=== PATIENT | female | born 1995 | race African-American/Black ===

== ENCOUNTER 2017-01-24 16:49 | Emergency (ER) | payer SELFPAY ==
[~2017-01-24] VITALS: Ht 165.1 cm; Wt 80.0 kg
[2017-01-24 16:51] VITALS: BP 124/74; PULSE 78; RESP 15; TEMP 98; O2SAT 99
--- NOTE | 2017-01-24 17:08 | PD ---
HPI Chief Complaint: GI Complaint Time Seen by Provider: 17:07 Travel History International Travel<30 days: No Contact w/Intl Traveler<30days: No Traveled to known affect area: No History of Present Illness HPI 21-year-old female with no significant medical history presents to the emergency department for evaluation of nausea and vomiting since this morning. Patient states that she "cannot keep anything down." Denies fever or chills. No significant abdominal pain. No urinary symptoms. Patient cannot recall when her last menstrual cycle was, states it "has been a while." Denies any chance of despite being sexually active reporting that she "always uses protection." Patient denies any recent illnesses, fever, or chills. She denies any urinary symptoms. No vaginal discharge or bleeding. No other symptoms to report. PFSH Past Medical History Medical History: Denies Significant Hx ?: Unknown LMP: UNKNOWN : 1 : 1 Social History Alcohol Use: Yes (OCC) Tobacco Use: No Substance Use: No Allergies-Medications (Allergen,Severity, Reaction): Coded Allergies: No Known Allergies (Unverified , 05/04/16) Reported Meds & Prescriptions Reported Meds & Active Scripts Active No Active Prescriptions or Reported Medications Review of Systems Except as stated in HPI: all other systems reviewed are Neg Physical Exam Narrative GENERAL: Well-nourished female patient, in no acute distress SKIN: Warm and dry. HEAD: Atraumatic. Normocephalic. EYES: Pupils equal and round. No scleral icterus. No injection or drainage. ENT: No nasal bleeding or discharge. Mucous membranes pink and moist. NECK: Trachea midline. No JVD. CARDIOVASCULAR: Regular rate and rhythm. No murmur appreciated. RESPIRATORY: No accessory muscle use. Clear to auscultation. Breath sounds equal bilaterally. GASTROINTESTINAL: Abdomen soft, non-tender, nondistended. Hepatic and splenic margins not palpable. MUSCULOSKELETAL: No obvious deformities. No clubbing. No cyanosis. No edema. NEUROLOGICAL: Awake and alert. No obvious cranial nerve deficits. Motor grossly within normal limits. Normal speech. PSYCHIATRIC: Appropriate mood and affect; insight and judgment normal. Data Data Last Documented VS Vital Signs Date Time Temp Pulse Resp B/P Pulse Ox O2 Delivery O2 Flow Rate FiO2 01/24/17 16:51 98.0 78 15 124/74 99 Orders Complete Blood Count With Diff (01/24/17 17:10) Comprehensive Metabolic Panel (01/24/17 17:10) Lipase (01/24/17 17:10) Prothrombin Time / Inr (Pt) (01/24/17 17:10) Act Partial Throm Time (Ptt) (01/24/17 17:10) Urinalysis - C+S If Indicated (01/24/17 17:10) Ed Urine Pregnancytest Poc (01/24/17 17:10) Gc And Chlamydia Pcr (01/24/17 17:12) Influenzae A/B Antigen (01/24/17 17:23) Ondansetron Inj (Zofran Inj) (01/24/17 18:00) Sodium Chlor 0.9% 1000 Ml Inj (Ns 1000 M (01/24/17 17:57) Ct Abd/Pel W Iv Contrast(Rout) (01/24/17 18:07) Dicyclomine Inj (Bentyl Inj) (01/24/17 18:15) Iohexol 350 Inj (Omnipaque 350 Inj) (01/24/17 19:30) Wet Prep Profile (01/24/17 20:12) Labs Laboratory Tests Test 01/24/17 01/24/17 01/24/17 17:12 17:20 17:25 Chlamydia trachomatis DNA NOT DETECTED (PCR) Neisseria gonorrhoeae DNA NOT DETECTED (PCR) White Blood Count 4.2 TH/MM3 Red Blood Count 4.30 MIL/MM3 Hemoglobin 13.2 GM/DL Hematocrit 39.1 % Mean Corpuscular Volume 90.9 FL Mean Corpuscular Hemoglobin 30.8 PG Mean Corpuscular Hemoglobin 33.8 % Concent Red Cell Distribution Width 12.5 % Platelet Count 187 TH/MM3 Mean Platelet Volume 10.1 FL Neutrophils (%) (Auto) 84.9 % Lymphocytes (%) (Auto) 11.5 % Monocytes (%) (Auto) 3.2 % Eosinophils (%) (Auto) 0.1 % Basophils (%) (Auto) 0.3 % Neutrophils # (Auto) 3.6 TH/MM3 Lymphocytes # (Auto) 0.5 TH/MM3 Monocytes # (Auto) 0.1 TH/MM3 Eosinophils # (Auto) 0.0 TH/MM3 Basophils # (Auto) 0.0 TH/MM3 CBC Comment DIFF FINAL Differential Comment Prothrombin Time 10.6 SEC Prothromb Time International 1.0 RATIO Ratio Activated Partial 19.6 SEC Thromboplast Time Sodium Level 139 MEQ/L Potassium Level 3.8 MEQ/L Chloride Level 105 MEQ/L Carbon Dioxide Level 27.2 MEQ/L Anion Gap 7 MEQ/L Blood Urea Nitrogen 8 MG/DL Creatinine 0.75 MG/DL Estimat Glomerular Filtration 116 ML/MIN Rate Random Glucose 94 MG/DL Calcium Level 8.5 MG/DL Total Bilirubin 0.2 MG/DL Aspartate Amino Transf 14 U/L (AST/SGOT) Alanine Aminotransferase 22 U/L (ALT/SGPT) Alkaline Phosphatase 51 U/L Total Protein 7.8 GM/DL Albumin 4.1 GM/DL Lipase 83 U/L Urine Color YELLOW Urine Turbidity HAZY Urine pH 6.5 Urine Specific [place] 1.031 Urine Protein 30 mg/dL Urine Glucose (UA) NEG mg/dL Urine Ketones NEG mg/dL Urine Occult Blood TRACE Urine Nitrite NEG Urine Bilirubin NEG Urine Urobilinogen 2.0 MG/DL Urine Leukocyte Esterase TRACE Urine RBC 25 /hpf Urine WBC 3 /hpf Urine Squamous Epithelial 22 /hpf Cells Urine Bacteria RARE /hpf Urine Hyaline Casts 1 /lpf Urine Mucus FEW /lpf Microscopic Urinalysis Comment CULT NOT INDICATED MDM Medical Decision Making Medical Screen Exam Complete: Yes Emergency Medical Condition: Yes Medical Record Reviewed: Yes Differential Diagnosis versus UTI versus STD versus gastroenteritis versus gastritis Narrative Course 21-year-old female presents to emergency department for evaluation of abdominal pain. Patient appears overall well and without distress. Abdominal exam is benign. Workup was initiated in triage. Once a medical bed becomes available, patient will be transferred and care assumed by the provider. Scripts No Active Prescriptions or Reported Meds Condition: Stable Chely Acevedo Jan 24, 2017 17:07
[2017-01-24] MEDS ORDERED: SODIUM CHLOR 0.9% 1000 ML INJ 1,000 ML IV ONE (17:57)
[2017-01-24 17:59] LABS: AUTOMATED NEUTROPHIL # 3.6 TH/MM3 (1.8-7.7); BASOPHIL % 0.3 % (0.0-2.0); EOSINOPHIL % 0.1 % (0.0-4.0); HEMATOCRIT 39.1 % (35.0-46.0); HEMO FLAGS DIFF FINAL; LYMPH % 11.5 % (9.0-44.0); LYMPHOCYTE # 0.5 TH/MM3 (1.0-4.8); MEAN CELL VOLUME 90.9 FL (80.0-100.0); MEAN CORPUSCULAR HEMOGLOBIN 30.8 PG (27.0-34.0); MEAN CORPUSCULAR HGB CONC 33.8 % (32.0-36.0); MONO % 3.2 % (0.0-8.0); NEUT % 84.9 % (16.0-70.0); PLATELET COUNT 187 TH/MM3 (150-450); RED CELL DISTRIBUTION WIDTH 12.5 % (11.6-17.2); WHITE BLOOD COUNT 4.2 TH/MM3 (4.0-11.0)
[2017-01-24] MEDS ORDERED: ONDANSETRON HCL 4 MG/2 ML VIAL IVP ONE (18:00)
[2017-01-24 18:01] LABS: BACTERIA, URINE RARE /hpf; BLOOD, URINE TRACE (NEG); COMMENT (UR) CULT NOT INDICATED; CULTURE IF INDICATED CULT NOT INDICATED; GLUCOSE,URINE NEG (NEG); HYALINE CAST, URINE 1 /lpf (RARE); KETONE, URINE NEG (NEG); MUCUS URINE FEW /lpf (OCC); NITRITE,URINE NEG (NEG); PH, URINE 6.5 (5.0-8.5); SQUAMOUS EPITHELIAL CELL URINE 22 /hpf (0-5); URINE COLOR YELLOW (YELLW/STRAW)
[2017-01-24 18:14] LABS: ALT (GPT) 22 U/L (10-53); ANION GAP 7 MEQ/L (5-15); AST (GOT) 14 U/L (15-37); BICARBONATE 27.2 MEQ/L (21.0-32.0); BLOOD UREA NITROGEN 8 MG/DL (7-18); CHLORIDE 105 MEQ/L (98-107); GLOMERULAR FILTRATION RATE 116 ML/MIN (>89); POTASSIUM 3.8 MEQ/L (3.5-5.1); SODIUM (NA) 139 MEQ/L (136-145)
[2017-01-24] MEDS ORDERED: DICYCLOMINE HCL 20 MG/2 ML VIAL IM ONE (18:15)
[2017-01-24 18:16] LABS: ALKALINE PHOSPHATASE 51 U/L (45-117); TOTAL BILIRUBIN ADULT 0.2 MG/DL (0.2-1.0)
[2017-01-24 18:17] LABS: APTT (PATIENT) 19.6 SEC (24.3-30.1); PROTHROMBIN TIME - PATIENT 10.6 SEC (9.8-11.6)
[2017-01-24] MEDS ORDERED: IOHEXOL 350 MG/ML 10 ML VIAL (for RAD DIAG) IV ONE (19:30)
--- NOTE | 2017-01-24 19:44 | RADRPT ---
EXAM DATE/TIME: 01/24/2017 19:21 [facility] COMPARISON: No previous studies available for comparison. INDICATIONS : Diffuse abdominal pain today. IV CONTRAST: 100 cc Omnipaque 350 (iohexol) IV ORAL CONTRAST: No oral contrast ingested. RADIATION DOSE: 11.16 CTDIvol (mGy) MEDICAL HISTORY : None SURGICAL HISTORY : None. ENCOUNTER: Initial ACUITY: 1 day PAIN SCALE: 5/10 LOCATION: upper quadrant abdomen TECHNIQUE: Volumetric scanning of the abdomen and pelvis was performed. Using automated exposure control and ad justment of the mA and/or kV according to patient size, radiation dose was kept as low as reasonably achievable to obtain optimal diagnostic quality images. FINDINGS: LOWER LUNGS: The visualized lower lungs are clear. LIVER: Homogeneous density without lesion. There is no dilation of the biliary tree. No calcified gallston es. SPLEEN: Normal size without lesion. PANCREAS: Within normal limits. KIDNEYS: Normal in size and shape. There is no mass, stone or hydronephrosis. ADRENAL GLANDS: Within normal limits. VASCULAR: There is no aortic aneurysm. BOWEL/MESENTERY: The stomach, small bowel, and colon demonstrate no acute abnormality. There is no free intraperitone al air or fluid. ABDOMINAL WALL: Within normal limits. RETROPERITONEUM: There is no lymphadenopathy. BLADDER: No wall thickening or mass. REPRODUCTIVE: There is a prominent cervix. And possible fluid in the cul-de-sac. Correlation with physical examinat ion recommended. INGUINAL: There is no lymphadenopathy or hernia. MUSCULOSKELETAL: Within normal limits for patient age. CONCLUSION: Prominent lower uterine segment and cervix with possible small amount of fluid in the cul-de-sac . Re commend correlation with physical examination. Jonas Grewal MD on January 24, 2017 at 19:40 Board Certified Radiologist. This report was verified electronically.
[2017-01-24 19:47] LABS: CHLAMYDIA PCR NOT DETECTED (NOT DETECT); NEISSERIA PCR NOT DETECTED (NOT DETECT)
--- NOTE | 2017-01-24 20:51 | PD ---
Physical Exam Date Seen by Provider: Jan 24, 2017 Time Seen by Provider: 20:47 Narrative 21-year-old female that presents to the ED for evaluation of abdominal pain, nausea and vomiting for one day. Please refer to previous providers note. I was given patient is a sign out. Basically I was waiting on lab results and CT imaging. Labs essentially showed UTI but no sign of acute disease. CT shows some inflammation of the pelvic area and the recommended physical examination. Patient was told this and agrees to do pelvic exam. Pelvic exam reveals some whitish discharge from the vagina but no sign of cervical tenderness or adnexal tenderness. No masses. This was done with female nurse present. Data Data Last Documented VS Vital Signs Date Time Temp Pulse Resp B/P Pulse Ox O2 Delivery O2 Flow Rate FiO2 01/24/17 16:51 98.0 78 15 124/74 99 Orders Complete Blood Count With Diff (01/24/17 17:10) Comprehensive Metabolic Panel (01/24/17 17:10) Lipase (01/24/17 17:10) Prothrombin Time / Inr (Pt) (01/24/17 17:10) Act Partial Throm Time (Ptt) (01/24/17 17:10) Urinalysis - C+S If Indicated (01/24/17 17:10) Ed Urine Pregnancytest Poc (01/24/17 17:10) Gc And Chlamydia Pcr (01/24/17 17:12) Influenzae A/B Antigen (01/24/17 17:23) Ondansetron Inj (Zofran Inj) (01/24/17 18:00) Sodium Chlor 0.9% 1000 Ml Inj (Ns 1000 M (01/24/17 17:57) Ct Abd/Pel W Iv Contrast(Rout) (01/24/17 18:07) Dicyclomine Inj (Bentyl Inj) (01/24/17 18:15) Iohexol 350 Inj (Omnipaque 350 Inj) (01/24/17 19:30) Wet Prep Profile (01/24/17 20:12) Labs Laboratory Tests Test 01/24/17 01/24/17 01/24/17 01/24/17 17:12 17:20 17:25 20:17 Chlamydia trachomatis DNA NOT DETECTED (PCR) Neisseria gonorrhoeae DNA NOT DETECTED (PCR) White Blood Count 4.2 TH/MM3 Red Blood Count 4.30 MIL/MM3 Hemoglobin 13.2 GM/DL Hematocrit 39.1 % Mean Corpuscular Volume 90.9 FL Mean Corpuscular Hemoglobin 30.8 PG Mean Corpuscular Hemoglobin 33.8 % Concent Red Cell Distribution Width 12.5 % Platelet Count 187 TH/MM3 Mean Platelet Volume 10.1 FL Neutrophils (%) (Auto) 84.9 % Lymphocytes (%) (Auto) 11.5 % Monocytes (%) (Auto) 3.2 % Eosinophils (%) (Auto) 0.1 % Basophils (%) (Auto) 0.3 % Neutrophils # (Auto) 3.6 TH/MM3 Lymphocytes # (Auto) 0.5 TH/MM3 Monocytes # (Auto) 0.1 TH/MM3 Eosinophils # (Auto) 0.0 TH/MM3 Basophils # (Auto) 0.0 TH/MM3 CBC Comment DIFF FINAL Differential Comment Prothrombin Time 10.6 SEC Prothromb Time International 1.0 RATIO Ratio Activated Partial 19.6 SEC Thromboplast Time Sodium Level 139 MEQ/L Potassium Level 3.8 MEQ/L Chloride Level 105 MEQ/L Carbon Dioxide Level 27.2 MEQ/L Anion Gap 7 MEQ/L Blood Urea Nitrogen 8 MG/DL Creatinine 0.75 MG/DL Estimat Glomerular Filtration 116 ML/MIN Rate Random Glucose 94 MG/DL Calcium Level 8.5 MG/DL Total Bilirubin 0.2 MG/DL Aspartate Amino Transf 14 U/L (AST/SGOT) Alanine Aminotransferase 22 U/L (ALT/SGPT) Alkaline Phosphatase 51 U/L Total Protein 7.8 GM/DL Albumin 4.1 GM/DL Lipase 83 U/L Urine Color YELLOW Urine Turbidity HAZY Urine pH 6.5 Urine Specific [place] 1.031 Urine Protein 30 mg/dL Urine Glucose (UA) NEG mg/dL Urine Ketones NEG mg/dL Urine Occult Blood TRACE Urine Nitrite NEG Urine Bilirubin NEG Urine Urobilinogen 2.0 MG/DL Urine Leukocyte Esterase TRACE Urine RBC 25 /hpf Urine WBC 3 /hpf Urine Squamous Epithelial 22 /hpf Cells Urine Bacteria RARE /hpf Urine Hyaline Casts 1 /lpf Urine Mucus FEW /lpf Microscopic Urinalysis Comment CULT NOT INDICATED Clue Cells (Wet Prep) NONE SEEN Vaginal Trichomonas (Wet Prep) PRESENT Vaginal Yeast (Wet Prep) NONE SEEN MDM Medical Record Reviewed: Yes Supervised Visit with AL: No Interpretation(s) CBC & BMP Diagram 01/24/17 17:20 UA shows UTI wet prep positive for trich gonorrhea and chlamydia negative CT negative other than for pelvic fluid Lipase and LFTs within normal limits. Differential Diagnosis Vaginitis versus STD versus normal exam versus acute abdomen versus UTI Narrative Course 21-year-old female that presents to the ED for evaluation of abdominal pain, nausea and vomiting. Patient was signed out to me pending lab reports and imaging. Lab report and imaging did show inflammation and fluid on the pelvic region. The recommended physical examination. Physical examination revealed discharge. Wet prep was done. Phenergan 20 were negative. Wet prep was positive for Trichomonas. Patient will be treated for this with Flagyl. She also was found to have UTI. Patient was given prescription for Bactrim. Patient was given Zofran for nausea. Console and safe sex. Avoid sexual intercourse for at least 2 weeks until better. See ED for any worsening symptoms. Follow with PCP. Diagnosis Primary Impression: Cystitis Additional Impressions: Trichomonas vaginalis infection Nausea & vomiting Qualified Code: R11.2 - Non-intractable vomiting with nausea, unspecified vomiting type Patient Instructions: General Instructions Additional Instruction: Take medications as prescribed. Follow with PCP. See ED for worsening symptoms. Liquid diet until better. No sex for 2 weeks. Always use protection. Med/Other Pt SpecificInfo: Prescription(s) given Scripts No Active Prescriptions or Reported Meds Disposition: 01 DISCHARGE HOME Condition: Mahamed Valadez Jan 24, 2017 20:51
[2017-01-24] MEDS ORDERED: BACT800T5 PO (20:52)
[2017-01-24] MEDS ORDERED: METR500T10 PO (20:52)
[2017-01-24] MEDS ORDERED: ZOFR4TAB PO (20:52)
== END 2017-01-24 21:16 | disposition home or self-care (01) ==
LOC: NEPE 16:49
DX: N30.90 Cystitis, unspecified without hematuria (principal); A59.01 Trichomonal vulvovaginitis; R11.2 Nausea with vomiting, unspecified
CPT/HCPCS: 74177; 80053; 81001; 83690; 84703; 85025; 85610; 85730; 87210; 87491; 87591; 87804; 96361; 96372; 96374; 99284; J0500; J2405; J7030; Q9967

== ENCOUNTER → 2017-11-07 | Day surgery (SDC) | payer OTHER ==
[~2017-11-07] MED LIST: ACETAMINOPHEN/HYDROcodone 325 MG/5 MG TAB ONE; BACT800T5 PO; BUPIVACAINE HCL PF 0.25% 30 ML VIAL ONE; METR1TAB76 PO; MIDAZOLAM HCL 2 MG/2 ML VIAL ONE; ONDANSETRON HCL 4 MG/2 ML VIAL IV PUSH ONE; PROPOFOL 200 MG/20 ML AMP IV ONE; ZOFR4TAB PO; ceFAZolin 2 GM PREMIX 50 ML ONE
--- NOTE | 2017-11-07 15:53 | RADRPT ---
EXAM DATE/TIME: 11/07/2017 13:44 [facility] COMPARISON: No previous studies available for comparison. INDICATIONS : Right foot, 5th digit arthroplasty- hammer toe. MEDICAL HISTORY : None. SURGICAL HISTORY : None. ENCOUNTER: Initial ACUITY: 1 day PAIN SCORE: Non-responsive. LOCATION: Right foot FINDINGS: Single frontal intraoperative view of the right foot reveals grossly normal bony alignment. An osseou s pin overlies the proximal, middle and distal phalanges of the fifth ray and may secure the same. I do not have a lateral projection for confirmation, however. CONCLUSION: Osseous pin overlying the phalanges of the fifth ray as above. Dick Douglas MD on November 07, 2017 at 15:49 Board Certified Radiologist. This report was verified electronically.
--- NOTE | 2017-11-07 15:54 | RADRPT ---
EXAM DATE/TIME: 11/07/2017 13:44 [facility] COMPARISON: No previous studies available for comparison. INDICATIONS : Left foot, 5th digit arthroplasty- hammer toe. MEDICAL HISTORY : None. SURGICAL HISTORY : None. ENCOUNTER: Initial ACUITY: 1 day PAIN SCORE: Non-responsive. LOCATION: Left foot FINDINGS: Single intraoperative frontal view of the left foot reveals grossly normal bony alignment. Osseous ov erlies the 3 phalanges of the fifth ray and may secure the same. I do not have a lateral projection f or confirmation, however. CONCLUSION: Osseous pin overlying the phalanges of the fifth ray as above. Dick Douglas MD on November 07, 2017 at 15:52 Board Certified Radiologist. This report was verified electronically.
--- NOTE | 2017-11-08 06:22 | MP ---
cc: DEYANIRA COLORADO DP DATE OF SURGERY 11/07/2017 PREOPERATIVE DIAGNOSIS Bilateral fifth digit hammertoe. POSTOPERATIVE DIAGNOSIS Bilateral fifth digit hammertoe. PROCEDURE PERFORMED Bilateral fifth digit PIPJ arthroplasty. ANESTHESIA General with local, 0.25% Marcaine plain; approximately 15 cc was utilized. HEMOSTASIS Bilateral ankle tourniquets at about 20 minutes at 215 mmHg. IMPLANTABLES Two 0.054 K-wires. COMPLICATIONS None. ESTIMATED BLOOD LOSS Less than 30 mL. DISPOSITION D/C home once stable per same-day surgery criteria. PROCEDURE IN DETAIL Under mild sedation the patient is brought into the operating room, placed on the operating table in the supine position. Following the induction of general anesthesia, local anesthesia was obtained about the patient's bilateral fifth digit. The patient's foot was then scrubbed, prepped and draped in the usual aseptic fashion. The foot was elevated, exsanguinated and the previously placed mid-ankle tourniquet was inflated to 15 mmHg. The procedure that is going to be dictated is the exact same procedure that was performed on the right and left fifth digits: An incision was made over the dorsal aspect of the fifth digit. Sharp and blunt dissection was carried down to the level of the extensor tendon. A linear a Z tendon lengthening approach took place gaining access to the level of the PIPJ. There was noted to be a prominent lateral condyle of the proximal phalanx and middle phalanx base. This was then sharply transected utilizing power instrumentation. Soft tissue contractures were then released allowing for rotation and rectus alignment of the toe. The head of the proximal phalanx and the base of the middle phalanx cartilage was then transected allowing for preparation for fusion site. The wound was flushed with copious amounts of normal saline. A wire was placed through the middle phalanx, through the distal phalanx and retrograded back across the proximal phalanx stopping just short of the fifth MPJ. Fluoroscopy was used to visualize the correction. It was noted to be excellent. The wound was flushed again with copious amounts of normal saline. The extensor tendon was then repaired utilizing Vicryl. Deep dermis was closed utilizing Monocryl. Skin was closed utilizing nylon. Upon relieving the tourniquet there was a prompt hyperemic response to all digits without any delayed capillary fill time of the fifth digit. A bulky bandage was placed. The patient was also positioned within postoperative shoes. She was extubated uneventfully. No complications. She will ice, elevate, weight bear to tolerance; however, limited. I will see the patient within 3-5 days. ROMANA Monet/JUDI /2:24 PM /6:11 AM
== END | disposition home or self-care (01) ==
LOC: ESDC 11:39
PROVIDERS: ATTEND Podiatrist Foot & Ankle Surgery
DX: M20.41 Other hammer toe(s) (acquired), right foot (principal); M20.42 Other hammer toe(s) (acquired), left foot
CPT/HCPCS: 01480; 28285; 73620; 76000; J0690; J2250; J2405; J3010